=== PATIENT | female | born 1980 | race African-American/Black ===

== ENCOUNTER 2016-08-30 08:12 | Outpatient (CLI) | payer OTHER ==
[2016-08-30 09:23] LABS: Free T4 (Free Thyroxine) 1.2 ng/dL (0.70-1.48)
[2016-08-30 09:37] LABS: ALT (SGPT) 16 U/L (0-55); AST (SGOT) 16 U/L (5-34); Albumin 4.1 g/dL (3.5-5.0); Alkaline Phosphatase 225 U/L (40-150); Anion Gap 14 mmol/L (10-20); BUN (Urea Nitrogen) 10 mg/dL (7.0-18.7); Bilirubin, Total 0.8 mg/dL (0.2-1.2); Calc. Creatinine Clearance 0 mL/min (70-130); Calcium 9.2 mg/dL (7.8-10.44); Carbon Dioxide 20 mmol/L (22-29); Chloride 110 mmol/L (98-107); Estimated GFR-MDRD Greater than 90; Globulin 3.6 g/dL (2.4-3.5); Glucose 105 mg/dL (70-105); Potassium 3.6 mmol/L (3.5-5.1); Protein, Total 7.7 g/dL (6.0-8.3); Sodium 140 mmol/L (136-145)
[2016-08-30 11:04] LABS: Hemoglobin 13.3 g/dL (12.0-16.0); Mean Corpuscular HGB CONC 31.6 g/dL (32.0-36.0); Mean Corpuscular Hemoglobin 25.8 pg (27.0-31.0); Mean Corpuscular Volume 81.8 fl (81.0-99.0); Mean Platelet Volume 6.9 fL (7.4-10.4); Platelet Count 224 thou/uL (130-400); RBC Distribution Width 13.9 % (11.5-14.5); Red Blood Cell (RBC) Count 5.15 mill/uL (4.20-5.40)
[2016-08-30 11:06] LABS: Eosinophils 1 % (0-10); Lymphocytes 53 % (21-51); MDiff Complete? YES; Monocytes 5 % (0-10); Neutrophil 41 % (42-75)
[2016-08-30 11:39] LABS: White Blood Cell (WBC) Count 6.3 thou/uL (4.8-10.8)
[2016-08-30 17:48] LABS: Free T3 4.52 pg/mL (1.71-3.71)
== END 2016-08-30 08:13 | disposition home or self-care (01) ==
LOC: BURLAB 08:12
PROVIDERS: ATTEND Internal Medicine Endocrinology, Diabetes & Metabolism
DX: E05.90 Thyrotoxicosis, unspecified without thyrotoxic crisis or storm (principal)
CPT/HCPCS: 36415; 80053; 84439; 84481; 85025

== ENCOUNTER 2016-09-10 12:59 | Outpatient (CLI) | payer OTHER | END 2016-09-10 13:00 | LOC: HPCALD 12:59 | PROVIDERS: ATTEND Physician Assistant | DX: Z01.419 Encounter for gynecological examination (general) (routine) without abnormal findings (principal) | CPT/HCPCS: 87480; 87491; 87510; 87591; 87660; 88142; G0123 ==

== ENCOUNTER 2017-01-10 18:30 | Emergency (ER) | payer OTHER ==
[2017-01-10] MEDS ORDERED: Ketorolac Tromethamine 30 MG/ML VIAL ONE (18:43)
[2017-01-10] MEDS ORDERED: Acetaminophen/Codeine 30-300mg Tablet ONE (19:04)
== END 2017-01-10 19:31 | disposition home or self-care (01) ==
LOC: BURERS 18:30
DX: S83.91XA Sprain of unspecified site of right knee, initial encounter (principal); I10 Essential (primary) hypertension; I25.2 Old myocardial infarction; I42.9 Cardiomyopathy, unspecified; I25.10 Atherosclerotic heart disease of native coronary artery without angina pectoris; F17.210 Nicotine dependence, cigarettes, uncomplicated; Z79.899 Other long term (current) drug therapy; Z79.82 Long term (current) use of aspirin; X50.1XXA Overexertion from prolonged static or awkward postures, initial encounter
CPT/HCPCS: 96372; J1885

== ENCOUNTER 2017-01-23 10:32 | Outpatient (CLI) | payer OTHER ==
--- NOTE | 2017-01-23 17:19 | CT ---
CT OF THE RIGHT KNEE: Date: 01/23/17 Thin axial slices were acquired, followed by coronal and sagittal reconstructions. FINDINGS: No fracture or dislocation was seen. While there may be a tiny amount of joint fluid present, it cer tainly is not excessive by any means. There is some streaking in the soft tissues along the medial a spect of the patellofemoral joint that could be post-traumatic in nature. The shape of the patient's posterior cruciate ligament is normal. The anterior cruciate cannot really be evaluated well on thi s study, nor can the menisci. There is no gross streaking along the medial collateral ligament to garcia ggest a large amount of change here. MRI, of course, would be superior at depicting any of these str uctures. IMPRESSION: 1. Minimal, if any, joint fluid. 2. Some streaking along the medial aspect of the patellofemoral joint which could signify prior tra lisa in this location or involving ligaments in this area. 3. Other findings as noted above. POS: HOME
== END 2017-01-23 10:33 | disposition home or self-care (01) ==
LOC: BURCT 10:32
PROVIDERS: ATTEND Physician Assistant
DX: M25.561 Pain in right knee (principal); M25.461 Effusion, right knee

== ENCOUNTER 2017-08-15 19:49 | Emergency (ER) | payer OTHER, SELFPAY ==
[2017-08-15] MEDS ORDERED: Acetaminophen 500 MG TAB ONE (20:10)
[2017-08-15] MEDS ORDERED: Ondansetron HCl/PF 4 MG/2 ML Vial ONE (20:16)
[2017-08-15 20:29] LABS: Hemoglobin 12.1 g/dL (12.0-16.0); Mean Corpuscular HGB CONC 35.4 g/dL (32.0-36.0); Mean Corpuscular Hemoglobin 26.5 pg (27.0-31.0); Mean Corpuscular Volume 74.9 fl (81.0-99.0); Mean Platelet Volume 7.1 fL (7.4-10.4); Platelet Count 176 thou/uL (130-400); RBC Distribution Width 13.2 % (11.5-14.5); Red Blood Cell (RBC) Count 4.55 mill/uL (4.20-5.40); White Blood Cell (WBC) Count 21.8 thou/uL (4.8-10.8)
[2017-08-15 20:34] LABS: INR-International Normal Ratio 1.2; Prothrombin Time 15.7 SEC (12.0-14.7)
[2017-08-15 20:35] LABS: PTT 44.5 SEC (22.9-36.1)
[2017-08-15 20:36] LABS: Pregnancy Test - Urine (BHCG) Negative (Negative); Pregu Control Bar Appear? YES (CONTROL BAR)
[2017-08-15 20:37] LABS: Bilirubin Small (Negative); Blood, Urine Moderate (Negative); Clarity Cloudy (Clear); Glucose, Urine (Dipstick) Negative (Negative); Leukocyte Trace (Negative); Nitrite Positive (Negative); Pregu Control Background? CLEAR/WHITE (CLR/WHITE); Protein, Urine (Dipstick) 100 mg/dL (Neg-Trace); Specific Gravity, Urine 1.025 (1.005-1.030); Urobilinogen > or = 8.0 mg/dL (0.2-1.0)
[2017-08-15] MEDS ORDERED: Ampicillin/Sulbactam 1.5 GM VIAL ONE (20:37)
[2017-08-15] MEDS ORDERED: Sodium Chloride 0.9% 200 ML ONE (20:38)
[2017-08-15 20:41] LABS: ALT (SGPT) 12 U/L (8-55); AST (SGOT) 16 U/L (5-34); Albumin 3.4 g/dL (3.5-5.0); Alkaline Phosphatase 176 U/L (40-150); Anion Gap 15 mmol/L (10-20); BUN (Urea Nitrogen) 8 mg/dL (7.0-18.7); Bilirubin, Total 0.9 mg/dL (0.2-1.2); Calc. Creatinine Clearance 0 mL/min (70-130); Calcium 9.1 mg/dL (7.8-10.44); Carbon Dioxide 19 mmol/L (22-29); Chloride 106 mmol/L (98-107); Estimated GFR-MDRD Greater than 90; Glucose 123 mg/dL (70-105); Potassium 3.4 mmol/L (3.5-5.1); Protein, Total 7.4 g/dL (6.0-8.3); Sodium 137 mmol/L (136-145)
[2017-08-15 20:42] LABS: CKMB 0.3 ng/mL (0-6.6); Troponin I 0.019 ng/mL (< 0.028)
[2017-08-15 20:46] LABS: Lymphocytes 18 % (21-51); MDiff Complete? YES; Microcytosis SLIGHT = 6-15 cells (100X) (0-5/hpf); Monocytes 6 % (0-10); Neutrophil 76 % (42-75)
[2017-08-15 20:48] LABS: Bacteria/HPF 1+ HPF (None Seen); Other Microscopic Description FEW CLUE CELLS
[2017-08-15] MEDS ORDERED: Nitrofurantoin Monohyd/M-Cryst 100 MG CAP PO SCH (22:45)
--- NOTE | 2017-08-16 12:02 | RAD ---
PORTABLE CHEST: DATE: 08/15/17. FINDINGS: An AP portable film at 2004 is compared with a 07/28/15 study. The heart is upper normal in size, but there is no congestive change. No pulmonary edema or pleural effusion was seen. There is no major lobar infiltrate. There is a slight amount of haziness to the right of the heart, but I would need a better inspiration PA and lateral view to tell if this would s uggest a little atelectasis or an actual infiltrate. AICD is in place as before. IMPRESSION: Little change since the prior study. Minimal haziness to the right of the heart. See above. POS: HOME
== END 2017-08-15 22:40 | disposition home or self-care (01) ==
LOC: BURERS 19:49
DX: A41.9 Sepsis, unspecified organism (principal); N39.0 Urinary tract infection, site not specified; J02.0 Streptococcal pharyngitis; I10 Essential (primary) hypertension; I25.2 Old myocardial infarction; I25.10 Atherosclerotic heart disease of native coronary artery without angina pectoris; F17.210 Nicotine dependence, cigarettes, uncomplicated; Z79.02 Long term (current) use of antithrombotics/antiplatelets; Z79.82 Long term (current) use of aspirin; Z79.899 Other long term (current) drug therapy
CPT/HCPCS: 71045; 80053; 81003; 81015; 81025; 82553; 83605; 83880; 84443; 84484; 85025; 85610; 85730; 87040; 87077; 87086; 87430; 94760; 96365; 96375; J0295; J1956; J2405; J7050

== ENCOUNTER 2017-09-29 17:31 | Emergency (ER) | payer OTHER, SELFPAY ==
[~2017-09-29 17:31] MED LIST: Iopamidol 370 76% 100 ML VIAL ONE
[2017-09-29] MEDS ORDERED: Fentanyl 100 MCG/2 ML VIAL ONE (18:10)
[2017-09-29 18:29] LABS: BHCG - Serum Negative (NEGATIVE); Pregs Control Background? CLEAR/WHITE (CLR/WHITE); Pregs Control Bar Appear? YES (CONTROL BAR)
[2017-09-29 18:40] LABS: ALT (SGPT) 17 U/L (8-55); AST (SGOT) 28 U/L (5-34); Albumin 3.5 g/dL (3.5-5.0); Alcohol Less than 10 mg/dL (Less than 10); Alkaline Phosphatase 221 U/L (40-150); Anion Gap 12 mmol/L (10-20); BUN (Urea Nitrogen) 9 mg/dL (7.0-18.7); Bilirubin, Total 0.8 mg/dL (0.2-1.2); CK (CPK) 115 U/L (29-168); Calc. Creatinine Clearance 0 mL/min (70-130); Carbon Dioxide 22 mmol/L (22-29); Chloride 109 mmol/L (98-107); Estimated GFR-MDRD Greater than 90; Globulin 4.2 g/dL (2.4-3.5); Glucose 102 mg/dL (70-105); Lipase 133 U/L (8-78); Potassium 3.7 mmol/L (3.5-5.1); Protein, Total 7.7 g/dL (6.0-8.3); Sodium 139 mmol/L (136-145)
[2017-09-29 18:42] LABS: Hemoglobin 10.6 g/dL (12.0-16.0); Hypochromia SLIGHT = 6-15 cells (100X) (0-5/hpf); Lymphocytes 19 % (21-51); MDiff Complete? YES; Mean Corpuscular HGB CONC 31.9 g/dL (32.0-36.0); Mean Corpuscular Hemoglobin 24.7 pg (27.0-31.0); Mean Corpuscular Volume 77.4 fl (81.0-99.0); Mean Platelet Volume 6.9 fL (7.4-10.4); Microcytosis SLIGHT = 6-15 cells (100X) (0-5/hpf); Monocytes 6 % (0-10); Neutrophil 74 % (42-75); Platelet Count 166 thou/uL (130-400); RBC Distribution Width 14.7 % (11.5-14.5); Reactive Lymphocytes 1 % (0-10); Red Blood Cell (RBC) Count 4.28 mill/uL (4.20-5.40)
[2017-09-29 18:45] LABS: White Blood Cell (WBC) Count 8.5 thou/uL (4.8-10.8)
[2017-09-29 18:47] LABS: CKMB 3.9 ng/mL (0-6.6); Troponin I 0.231 ng/mL (< 0.028)
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
== END 2017-09-29 20:37 | disposition short-term general hospital (02) ==
LOC: BURERS 17:31
DX: T82.198A Other mechanical complication of other cardiac electronic device, initial encounter (principal); I10 Essential (primary) hypertension; I25.2 Old myocardial infarction; I25.10 Atherosclerotic heart disease of native coronary artery without angina pectoris; F17.210 Nicotine dependence, cigarettes, uncomplicated; Z79.899 Other long term (current) drug therapy; Z79.82 Long term (current) use of aspirin; V43.52XA Car driver injured in collision with other type car in traffic accident, initial encounter
CPT/HCPCS: 71045; 71260; 74177; 80053; 80307; 82550; 82553; 83690; 84484; 84703; 85025; 93005; 94760; 96361; 96374; A4216; G0390; J3010

== ENCOUNTER 2017-12-16 18:17 | Emergency (ER) | payer BC ==
[2017-12-16] MEDS ORDERED: Furosemide 100 MG/10 ML VIAL ONE (18:58)
[2017-12-16 19:05] LABS: Hemoglobin 9.6 g/dL (12.0-16.0); Red Blood Cell (RBC) Count 4.04 mill/uL (4.20-5.40); White Blood Cell (WBC) Count 5.4 thou/uL (4.8-10.8)
[2017-12-16 19:06] LABS: Manual Diff?? YES; Mean Corpuscular HGB CONC 32.8 g/dL (32.0-36.0); Mean Corpuscular Hemoglobin 23.7 pg (27.0-31.0); Mean Platelet Volume 6.4 fL (7.4-10.4); Platelet Count 149 thou/uL (130-400); RBC Distribution Width 14.7 % (11.5-14.5)
[2017-12-16 19:07] LABS: ALT (SGPT) 10 U/L (8-55); AST (SGOT) 20 U/L (5-34); Alkaline Phosphatase 253 U/L (40-150); Anion Gap 13 mmol/L (10-20); BUN (Urea Nitrogen) 7 mg/dL (7.0-18.7); Bilirubin, Total 1.4 mg/dL (0.2-1.2); Calc. Creatinine Clearance 0 mL/min (70-130); Calcium 8.5 mg/dL (7.8-10.44); Carbon Dioxide 23 mmol/L (22-29); Chloride 108 mmol/L (98-107); Estimated GFR-MDRD Greater than 90; Globulin 4.1 g/dL (2.4-3.5); Glucose 126 mg/dL (70-105); MDiff Complete? YES; Potassium 3.5 mmol/L (3.5-5.1); Protein, Total 7.1 g/dL (6.0-8.3); Sodium 140 mmol/L (136-145)
[2017-12-16 19:08] LABS: Hypochromia SLIGHT = 6-15 cells (100X) (0-5/hpf); Lymphocytes 49 % (21-51); Microcytosis SLIGHT = 6-15 cells (100X) (0-5/hpf); Monocytes 4 % (0-10); Neutrophil 46 % (42-75); Reactive Lymphocytes 1 % (0-10)
[2017-12-16 19:10] LABS: CKMB 0.9 ng/mL (0-6.6); Troponin I Less than 0.010 ng/mL (< 0.028)
--- NOTE | 2017-12-16 19:16 | RAD ---
PORTABLE CHEST: 12/16/17 An AP portable film at 1824 is compared with a 09/29/17 study. Cardiomegaly is approximately the same as before. An AICD is in place as usual. No lobar consolidatio n or effusion was seen. One might argue for the pulmonary vasculature to be a little more prominent t jon before, but the findings currently do not support CHF. IMPRESSION: Cardiomegaly with no definite acute change. POS: HOME
[2017-12-16 19:25] LABS: Clarity Cloudy (Clear); Specific Gravity, Urine 1.025 (1.005-1.030)
[2017-12-16 19:26] LABS: Bilirubin Small (Negative); Blood, Urine Trace (Negative); Glucose, Urine (Dipstick) Negative (Negative); Leukocyte Negative (Negative); Nitrite Negative (Negative); Protein, Urine (Dipstick) > or equal to 300 mg/dL (Neg-Trace)
[2017-12-16 19:30] LABS: Bacteria/HPF 4+ HPF (None Seen); WBC/HPF 0-3 HPF (0-3)
== END 2017-12-16 19:56 | disposition home or self-care (01) ==
LOC: BURERS 18:17
DX: I11.0 Hypertensive heart disease with heart failure (principal); I50.9 Heart failure, unspecified; I25.2 Old myocardial infarction; F17.210 Nicotine dependence, cigarettes, uncomplicated; Z79.899 Other long term (current) drug therapy; Z79.82 Long term (current) use of aspirin
CPT/HCPCS: 71045; 80053; 81003; 81015; 82553; 83880; 84484; 85025; 87086; 93005; 96374; J1940

== ENCOUNTER 2018-07-18 20:20 | Emergency (ER) | payer MEDICAID | END 2018-07-18 21:29 | disposition home or self-care (01) | LOC: BURERS 20:20 | DX: Z45.010 Encounter for checking and testing of cardiac pacemaker pulse generator [battery] (principal); I25.2 Old myocardial infarction; I10 Essential (primary) hypertension; F17.210 Nicotine dependence, cigarettes, uncomplicated | CPT/HCPCS: 93005 ==

== ENCOUNTER 2021-03-02 08:56 | Emergency (ER) | payer MEDICARE, OTHER | END 2021-03-02 09:33 | disposition home or self-care (01) | LOC: BURERS 08:56 | DX: J06.9 Acute upper respiratory infection, unspecified (principal); I25.2 Old myocardial infarction; I10 Essential (primary) hypertension; F17.210 Nicotine dependence, cigarettes, uncomplicated; Z79.899 Other long term (current) drug therapy | CPT/HCPCS: 99283 ==

== ENCOUNTER 2021-06-14 18:13 | Emergency (ER) | payer MEDICARE, OTHER ==
[2021-06-14] MEDS ORDERED: Aspirin Chewable 81 MG TAB ONE (18:26)
[2021-06-14 19:10] LABS: #Basophils 0.1 thou/uL (0.0-0.2); #Eosinphils 0.1 thou/uL (0.0-0.7); #Lymphocytes 2.9 thou/uL (1.20-3.40); #Monocytes 0.3 thou/uL (0.11-0.59); #Neutrophils 3.3 thou/uL (1.40-6.50); %Lymphocytes 43.1 % (21.0-51.0); %Monocytes 4.3 % (0.0-10.0); %Neutrophils 49.7 % (42.0-75.0); Hemoglobin 13.7 g/dL (12.0-16.0); Mean Corpuscular Hemoglobin 29.9 pg (27.0-31.0); Mean Corpuscular Volume 93.6 fL (78.0-98.0); Mean Platelet Volume 8.1 fL (7.4-10.4); Platelet Count 279 thou/uL (130-400); RBC Distribution Width 13.8 % (11.5-14.5); Red Blood Cell (RBC) Count 4.59 mill/uL (4.20-5.40); White Blood Cell (WBC) Count 6.7 thou/uL (4.8-10.8)
[2021-06-14 19:26] LABS: ALT (SGPT) 24 U/L (8-55); AST (SGOT) 23 U/L (5-34); Albumin 4.5 g/dL (3.5-5.0); Alkaline Phosphatase 76 U/L (40-110); Anion Gap 14 mmol/L (10-20); BUN (Urea Nitrogen) 10 mg/dL (7.0-18.7); Bilirubin, Total 0.4 mg/dL (0.2-1.2); Calc. Creatinine Clearance 0 mL/min (70-130); Calcium 9.2 mg/dL (7.8-10.44); Carbon Dioxide 27 mmol/L (22-29); Chloride 100 mmol/L (98-107); Glucose 80 mg/dL (70-105); Potassium 3.3 mmol/L (3.5-5.1); Protein, Total 8.5 g/dL (6.0-8.3); Sodium 138 mmol/L (136-145)
[2021-06-14 22:15] LABS: Troponin I Less than 0.010 ng/mL (< 0.028)
== END 2021-06-14 23:20 | disposition left against medical advice (07) ==
LOC: BURERS 18:13
DX: R07.9 Chest pain, unspecified (principal); R94.31 Abnormal electrocardiogram [ECG] [EKG]; I25.2 Old myocardial infarction; I10 Essential (primary) hypertension; F17.210 Nicotine dependence, cigarettes, uncomplicated; Z79.82 Long term (current) use of aspirin; Z79.899 Other long term (current) drug therapy
CPT/HCPCS: 71045; 80053; 83880; 84484; 85025; 93005

== ENCOUNTER 2022-04-28 15:36 | Emergency (ER) | payer MEDICARE, BC, OTHER ==
[2022-04-28] MEDS ORDERED: Acetaminophen 500 MG TAB ONE (16:17)
[2022-04-28] MEDS ORDERED: predniSONE 20 MG TAB ONE (16:29)
[2022-04-28] MEDS ORDERED: Albuterol 200 PUFF (6.7GM INHALER) ONE (16:29)
== END 2022-04-28 17:42 | disposition home or self-care (01) ==
LOC: BURERS 15:36
DX: B34.9 Viral infection, unspecified (principal); J45.901 Unspecified asthma with (acute) exacerbation; Z20.822 Contact with and (suspected) exposure to COVID-19; I10 Essential (primary) hypertension; E78.5 Hyperlipidemia, unspecified; E03.9 Hypothyroidism, unspecified; F17.210 Nicotine dependence, cigarettes, uncomplicated
CPT/HCPCS: 71045; 87804; J7512; U0003; U0005

== ENCOUNTER 2024-02-02 18:56 | Emergency (ER) | payer MEDICARE | END 2024-02-02 19:43 | disposition home or self-care (01) | LOC: BURERS 18:56 | DX: J06.9 Acute upper respiratory infection, unspecified (principal); I25.2 Old myocardial infarction; I10 Essential (primary) hypertension; F17.210 Nicotine dependence, cigarettes, uncomplicated; Z55.6 Problems related to health literacy | CPT/HCPCS: 99283 ==